=== PATIENT | female | born 1990 | race Caucasian/White ===

== ENCOUNTER 2016-04-09 10:22 | Emergency (ER) | payer OTHER ==
[2016-04-09 12:02] VITALS: BP 107/76; PULSE 80; RESP 18; TEMP 98.2; O2SAT 98
--- NOTE | 2016-04-09 13:23 | DX ---
Cervical Spine, Four Views History: Pain x 6 weeks , no known trauma Findings: Straightening of the upper cervical curvature could be related to patient positioning or mu scle spasm. Alignment is anatomic. The disk spaces maintain normal height. Mineralization is normal. Facets and neural foramen look normal. Impression: Possible muscle spasm.
--- NOTE | 2016-04-09 13:43 | UCPHY ---
H & P Time Seen by Provider: 04/09/16 12:28 Patient Type: Established HPI/ROS: When she takes it but does not feel significant symptomatic relief. 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 The pain is bilateral posterior cervical and radiates into her upper back bilaterally to the trapezius and rhomboid region. Peak intensity is 8/10. It is achy and sharp in nature. Currently it is 5/10 in intensity. Other than some partial relief from Advil she notes no other exacerbating or alleviating factors. ROS: Constitutional-no fevers or chills Musculoskeletal: She does have mild midline neck pain. She does not have lower back pain HEENT no recent head injury. No headache. Neurologic no focal numbness tingling or weakness. The pain does radiate down the right upper arm. No bowel or bladder incontinence. 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 General: No acute distress HEENT: Atraumatic. Eyes: Pupils equal and react to light. Extraocular motions are intact. Neck: The patient has mild midline tenderness from C4-C6 or so. She also has paraspinous cervical tenderness bilaterally and she has muscle spasm in bilateral trapezius and rhomboid regions. With lateral neck flexion toward the right side she has increased right-sided neck pain. She tolerates all other neck movements without significant change in discomfort. Lungs: No respiratory distress. Cardiac: Regular rate and rhythm with no murmur gallop or rub Skin: No rash or pallor. Neuro: Alert . She maintains weak but symmetric biceps, triceps, brachioradialis, patellar and Achilles DTRs bilaterally. She maintains 5/5 strength in upper and lower extremities and maintains normal light touch sensory exam upper and lower extremities Initial differential diagnosis: Cervical muscle strain from a nitro body positions during studying and potential injury during climbing, disc herniation , rule out bony abnormality Constitutional: Initial Vital Signs Temperature (C) 36.8 C 04/09/16 11:58 Heart Rate 80 04/09/16 11:58 Respiratory Rate 18 04/09/16 11:58 Blood Pressure 107/76 04/09/16 11:58 O2 Sat (%) 98 04/09/16 11:58 O2 Delivery Mode Room Air Allergies/Adverse Reactions: No Known Allergies Allergy (Verified 04/09/16 11:56) Home Medications: Medication Instructions Recorded Methocarbamol [Robaxin 750 mg (*)] 750 - 1,500 mg PO QID PRN #30 tab 04/09/16 MDM/Departure - MDM Diagnostics: Cervical spine x-ray: Loss of lordosis consistent with muscle spasm. Disc spaces are preserved and appreciate no bony abnormalities by my interpretation ED Course/Re-evaluation: Patient is treated with ibuprofen. I counseled her regarding her cervical strain and muscle spasm. Explained the differential diagnosis does include potential disc herniation but she does not have any focal neuro findings. - Depart Disposition: Home, Routine, Self-Care Clinical Impression: Pain of rhomboid muscle Condition: Good Instructions: Neck Pain (ED) Additional Instructions: Diagnosis: Neck pain 2. Rhomboid and trapezius muscle spasm Plan: Continue ibuprofen-600 mg per 6 hours Daily stretches for 20 30 minutes Methocarbamol muscle relaxant and Tylenol in addition as needed. Follow up with primary care physician Return for any significant worsening despite treatment plan Prescriptions: Methocarbamol [Robaxin 750 mg (*)] 750 - 1,500 mg PO QID PRN #30 tab PRN Reason: Muscle Spasms Referrals: Raheel Orellana MD [Primary Care Provider] - As per Instructions - PQRS PQRS Measurement: NA
== END 2016-04-09 13:54 | disposition home or self-care (01) ==
LOC: CED 10:22
DX: M79.1 Myalgia (principal)
CPT/HCPCS: 72050-PO; 99214-PO; G0463-PO

== ENCOUNTER → 2016-04-20 | Outpatient (CLI) | payer OTHER ==
--- NOTE | 2016-04-20 18:53 | MR ---
Unenhanced MRI of the Cervical Spine Clinical History: 25-year-old female with cervicalgia radiating from the base of the neck, extending to the shoulder and down the right arm. ICD-10 Diagnostic Code: M54.2. Technique: Sagittal T1 FLAIR, T2 STIR, and FSE T2-weighted sequences were obtained from the infraten torium caudally to the T3-T4 disk interspace level and supplemented by stacked axial 3D MERGE and T2 cube sequences. Comparison Study: Cervical spine radiographs, dated April 09, 2016. Findings: The cervical vertebral body heights and posterior alignments are maintained. The bone mar row signal is within normal limits. There is a relatively capacious thecal sac. The spinal cord alton iber and signal are normal. Specifically, there is no cord edema, myelomalacia, or syrinx. There is some CSF flow-related artifact dorsal to the cord in the upper thoracic spine. The craniocervical j unction and visualized infratentorial structures are normal. The prevertebral soft tissues are notab le only for some mild adenoidal tissue hypertrophy along the posterior nasopharynx. The C1-C2 and C2-C3 levels are unremarkable, with no central canal or neural foraminal stenosis. At the C3-C4 level, there is a small obtusely-marginated annular tear and tiny central subligamentous disk herniation, which slightly impinges on the ventral thecal sac; however, there is still ample CS F ventral and dorsal to cord. The lateral recesses and neural foramina remain patent. At the C4-C5 level, there is a tiny annular tear, with a tiny central subligamentous disk herniation, with no significant central canal stenosis. There is no lateral recess or neural foraminal impingem ent. At the C5-C6 level, there is some minimal uncovertebral hypertrophy, but no significant stenosis. The C6-C7 and C7-T1 levels are normal. Impression: Tiny annular tears are noted at the C3-C4 and C4-C5 levels, with tiny associated subliga mentous disk herniations; however, because there is a relatively capacious thecal sac there is no sig nificant canal stenosis, nor is there any neural foraminal impingement or cord edema.
== END ==
LOC: FIMAGING 15:18
PROVIDERS: ATTEND Internal Medicine
DX: M50.31 Other cervical disc degeneration, high cervical region (principal); M50.322 Other cervical disc degeneration at C5-C6 level; M50.321 Other cervical disc degeneration at C4-C5 level